=== PATIENT | male | born 1995 | race Caucasian/White ===

== ENCOUNTER 2017-06-26 16:40 | Emergency (ER) | payer OTHER ==
[~2017-06-26] VITALS: Ht 177.8 cm; Wt 80.0 kg
[2017-06-26] MEDS ORDERED: SODIUM CHLORIDE 0.9% 1,000ML IVBOLUS ONE (17:00)
[2017-06-26] MEDS ORDERED: SODIUM CHLORIDE FLUSH 10ML SYR IVF ONE (17:00)
[2017-06-26 17:57] LABS: HEMATOCRIT 43.8 % (39.2-51.8); HEMOGLOBIN 14.7 g/dL (13.7-18.0); WHITE BLOOD COUNT 4.6 x10^3/uL (4.5-13.2)
[2017-06-26 18:02] LABS: BLOOD UREA NITROGEN 19 mg/dL (7-18)
[2017-06-26 19:20] VITALS: BP 106/40
== END 2017-06-26 19:22 | disposition home or self-care (01) ==
LOC: ED 18:55
DX: R55 Syncope and collapse (principal)
CPT/HCPCS: 36415; 70450; 80048; 82040; 85025; 93005; 96360; 99285; J7030